=== PATIENT | female | born 1990 | race African-American/Black ===

== ENCOUNTER 2016-07-03 07:21 | Emergency (ER) | payer OTHER ==
[~2016-07-03] VITALS: Ht 160 cm; Wt 72.6 kg
[~2016-07-03 07:21] MED LIST: MEDROL4 M2 PO; NAPROSYN500 M1 PO
--- NOTE | 2016-07-03 08:24 | ED UPPER/LOWER EXTREMITY COMPL ---
History of Present Illness General Chief Complaint: General Adult Stated Complaint: JOINT PAIN Source: patient Exam Limitations: no limitations Vital Signs & Intake/Output Vital Signs & Intake/Output Vital Signs Date Time Temp Pulse Resp B/P Pulse O2 O2 Flow FiO2 Ox Delivery Rate 07/03 0726 96.7 86 18 151/91 99 Room Air Allergies Coded Allergies: NO KNOWN ALLERGIES (02/27/16) Reconcile Medications Methylprednisolone. (Medrol) 4 MG TAB.DS.PK 1 DP PO AD LUPUS 6 on day 1 then reduce by one tablet daily until gone Methylprednisolone. (Medrol) 4 MG TAB.DS.PK 1 DP PO AD LUPUS 6 on day 1 then reduce by one tablet daily until gone Naproxen (Naprosyn) 500 MG TABLET 1 TAB PO BID PRN PAIN AND INFLAMMATION Triage Note: 25 HANDS, KNEES AND WHOLE BODY"; ONSET THURSDAY AND CONSTANT SINCE. HX LUPUS AND STATES THIS CURRENT PAIN IS UNRELIEVED WITH MOTRIN - LAST DOSE LAST NIGHT. AFEBRILE. Triage Nurses Notes Reviewed? yes : No Patient currently breastfeeds: No HPI: Patient presents for evaluation of joint pains. Pains began gradually 4-5 days ago and involve primarily the ankles and knees and left elbow. The pains have been constant since onset, described as moderate in intensity. the pain is an aching pain that gets worse with movement and seems to improve somewhat with rest. Patient did get some relief with use of ibuprofen and Percocet. Patient states that her symptoms are consistent with prior lupus flares. No associated fever or cold symptoms or rashes. recent eval by manufacturing controller for vaginal pain and bleeding. pt also c/o am chest pain and dyspnea, but not currently. Past History Travel History Traveled to [place] past 21 day No Medical History Any Pertinent Medical History? see below for history Neurological: NONE EENT: NONE Cardiovascular: NONE Respiratory: NONE Gastrointestinal: NONE Hepatic: NONE Renal: NONE Musculoskeletal: LUPUS RAYNAUDS Psychiatric: NONE Endocrine: NONE Blood Disorders: NONE Cancer(s): NONE LOFTSMAN/WOMAN/Reproductive: NONE Surgical History Surgical History: non-contributory Psychosocial History What is your primary language Surinamese Tobacco Use: Never used Family History Hx Contributory? No Review of Systems Review of Systems Constitutional: Reports: no symptoms. EENTM: Reports: no symptoms. Respiratory: Reports: no symptoms. Cardiovascular: Reports: no symptoms. Gastrointestinal/Abdominal: Reports: no symptoms. Genitourinary: Reports: no symptoms. Musculoskeletal: Reports: see HPI. Skin: Reports: no symptoms. Neurological/Psychological: Reports: no symptoms. Hematologic/Endocrine: Reports: no symptoms. Immunological: Reports: no symptoms. All Other Systems: Reviewed and Negative Physical Exam Physical Exam General Appearance: see below Comments: Gen.: Well-nourished, well-developed, no acute respiratory distress. Head: Normocephalic, atraumatic. Eyes: Normal inspection bilaterally Ears: Normal inspection bilaterally Nose: Normal inspection Throat/mouth : Moist mucosa Neck: Supple, full range of motion, no goiter Heart: Regular rate and rhythm, no murmurs rubs or gallops Lungs: Clear to auscultation bilaterally with normal air entry Chest: Nontender Back: Normal range of motion Abdomen: Soft, nontender, nondistended, normal bowel sounds Extremities: Normal range of motion grossly with some discomfort, no erythema or warmth, no obvious joint swelling or effusions. Neurologic: Cranial nerves grossly intact, speech is clear Skin: warm and dry, no rashes Psychiatric: Calm, cooperative, no apparent delusions or hallucinations Progress Differential Diagnosis: gout, septic arthritis, lupus Plan of Care: Orders Procedure Date/time Status EKG 07/03 823 Active Diagnostic Imaging: Discussed w/RAD: Radiology Read. CXR Impression: PATIENT: JETT DUNNE PRESENT AGE: 25 PATIENT ACCOUNT NO: [id number] : 88 LOCATION: [facility] ORDERING PHYSICIAN: ELISEO WILLIAM MD SERVICE DATE: 07/03/16 EXAM TYPE: RAD - XRY-CHEST XRAY, PA AND LATERAL EXAMINATION: XR CHEST CLINICAL INFORMATION: Effusion chest pain COMPARISON: None TECHNIQUE: 2 views of the chest were obtained. FINDINGS: No significant abnormality is noted involving the heart, lungs, mediastinum, bony thorax or soft tissues. Mild right convex curvature of the thoracolumbar spine measured approximately 12 degrees between T7 and L1 IMPRESSION: No acute disease. Mild convex right curvature of the thoracolumbar spine DICTATED BY: CORNELIO ROBLES MD DATE/TIME DICTATED:07/03/16842 TOWEL SORTER: NICKI DATE/TIME TRANSCRIBED:07/03/16842 CONFIDENTIAL, DO NOT COPY WITHOUT APPROPRIATE AUTHORIZATION. <Electronically signed in Other Vendor System> SIGNED BY: CORNELIO ROBLES MD 07/03/16 0849 Initial ED EKG: NSR, rate (78) Departure Departure Disposition: HOME OR SELF CARE Condition: Stable Clinical Impression Primary Impression: Exacerbation of systemic lupus Referrals: NABILA HERNANDEZ,CARI Neil RAI, MD,GARETT (PCP/Family) Additional Instructions: Follow-up with your primary care physician or Dr. Diamond (tobacco stemmer) next week for reevaluation. Medrol Dosepak as prescribed. Continue ibuprofen 600 mg every 6 hours as needed for pain. Return if any concerns or sudden worsening. Thank you for choosing the [facility] Emergency [facility] for your care. It was a pleasure to serve you today. Eliseo William M.D. [facility] Departure Forms: Customer Survey General Discharge Information Prescriptions: Current Visit Scripts Methylprednisolone. (Medrol) 1 DP PO AD #1 DP 6 on day 1 then reduce by one tablet daily until gone Resident Co-Sign Statement Statement: ED Attending supervision documentation- [x] I saw and evaluated the patient. I have also reviewed all the pertinent lab results and diagnostic results. I agree with the findings and the plan of care as documented in the Resident's documentation. [] I have reviewed the ED Record and agree with the Resident's documentation. [] Additions or exceptions (if any) to the Resident's note and plan are summarized below: []
[2016-07-03] MEDS ORDERED: MEDROL4 M2 PO (08:28)
--- NOTE | 2016-07-03 08:49 | RADIOLOGY REPORT ---
EXAMINATION: XR CHEST CLINICAL INFORMATION: Effusion chest pain COMPARISON: None TECHNIQUE: 2 views of the chest were obtained. FINDINGS: No significant abnormality is noted involving the heart, lungs, mediastinum, bony thorax or soft tissues. Mild right convex curvature of the thoracolumbar spine measured approximately 12 degrees between T7 and L1 IMPRESSION: No acute disease. Mild convex right curvature of the thoracolumbar spine
[2016-07-03 09:31] VITALS: BP 130/80
[2016-07-03] MEDS ORDERED: NAPROSYN500 M1 PO (09:31)
== END 2016-07-03 09:37 ==
LOC: ERH 07:21
DX: M32.9 Systemic lupus erythematosus, unspecified (principal); R07.9 Chest pain, unspecified
CPT/HCPCS: 93005; 93010; 96372; J1885; J2930